=== PATIENT | male | born 1955 | race Caucasian/White ===

== ENCOUNTER → 2019-04-25 | Outpatient (CLI) | payer BC ==
[~2019-04-25] MED LIST: IOHEXOL 300 MG/ML 100ML VIAL. IV ONE
--- NOTE | 2019-04-25 13:44 | RAD ---
Examination: CT of the abdomen pelvis without and with IV contrast HISTORY: History of gross hematuria COMPARISON: None available TECHNIQUE: Axial CT images of the abdomen pelvis were performed without and with IV contrast. Coronal and sagittal reformats are performed. Exposure: One or more of the following individualized dose reduction techniques were utilized for this examination: 1. Automated exposure control 2. Adjustment of the mA and/or kV according to patient size 3. Use of iterative reconstruction technique FINDINGS: The bibasilar lungs are clear. No evidence of air identified in the abdomen. The visualized liver, spleen, adrenals grossly appears unremarkable. The gallbladder is mildly distended. Small hiatal hernia. The stomach is mildly distended. The visualized pancreas grossly appears unremarkable. The small bowel is nondilated. Feces and gas noted in the colon. Punctate 3 mm calculus identified in the left kidney. There is a 9mm hypodensity identified in the inferior right kidney which is difficult to characterize on this examination measuring 31 Hounsfield units. No evidence of hydronephrosis. The gallbladder is mildly distended. Moderate enlarged appearing prostate gland. Mild degenerative changes thoracolumbar spine. IMPRESSION: 1. A 9mm hypodensity identified in the inferior right kidney is difficult to characterize measuring 31 Hounsfield units on the contrasted examination. Recommend follow-up ultrasound and/or MRI for further evaluation. 2. Punctate 3 mm calculus left kidney. Electronically signed by: Adam Marie MD (04/25/2019 1:41 PM) [id number]
== END | disposition home or self-care (01) ==
LOC: CT 10:01
PROVIDERS: ATTEND Urology
DX: N20.0 Calculus of kidney (principal); K44.9 Diaphragmatic hernia without obstruction or gangrene; K82.8 Other specified diseases of gallbladder; M47.815 Spondylosis without myelopathy or radiculopathy, thoracolumbar region
CPT/HCPCS: 74178; Q9967